=== PATIENT | female | born 1940 | race Caucasian/White ===

== ENCOUNTER 2023-06-05 22:36 | Emergency (ER) | payer MEDICARE, OTHER ==
[2023-06-05] MEDS ORDERED: Diphtheria,Pertussis(Acell),Tetanus Vaccine 0.5 ML Syringe IM ONE (22:41)
[2023-06-05] MEDS ORDERED: Lidocaine 1% 10 ML MDV INJECT ONE (22:41)
== END 2023-06-06 00:25 | disposition home or self-care (01) ==
LOC: JD.ED 22:36
DX: S01.112A Laceration without foreign body of left eyelid and periocular area, initial encounter (principal); S51.812A Laceration without foreign body of left forearm, initial encounter; S80.02XA Contusion of left knee, initial encounter; I10 Essential (primary) hypertension; Z88.0 Allergy status to penicillin; Z88.1 Allergy status to other antibiotic agents; Z88.2 Allergy status to sulfonamides; Z88.5 Allergy status to narcotic agent; Z88.6 Allergy status to analgesic agent; X58.XXXA Exposure to other specified factors, initial encounter
CPT/HCPCS: 12011; 70450; 70450-26; 72125; 72125-26; 90471; 90715; 99282; 99283-25; J3490